=== PATIENT | female | born 1965 | race Caucasian/White ===

== ENCOUNTER → 2016-12-26 | Outpatient (CLI) | payer OTHER ==
[2016-12-26 13:08] LABS: BASO % 0.7 % (0.0-1.0); EOS # 0.1 K/mm3 (0.0-0.50); EOS % 1.7 % (0.0-3.0); LARGE UNSTAINED CELL # 0.1 K/mm3 (0.0-0.4); LARGE UNSTAINED CELL % 1.8 % (0.0-4.0); LYMPH # 1.6 K/mm3 (1.5-4.5); LYMPH % 24.7 % (24.0-44.0); MEAN CORPUSCULAR HEMOGLOBIN 26.2 pg (27.0-33.0); MEAN CORPUSCULAR HGB CONC 32.1 g/dl (32.0-36.5); MEAN CORPUSCULAR VOLUME 81.6 fl (80.0-96.0); MONO # 0.4 K/mm3 (0.0-0.8); MONO % 5.4 % (0.0-5.0); NEUTROPHILS # 4.4 K/mm3 (1.8-7.7); NEUTROPHILS % 65.7 % (36.0-66.0); PLATELET COUNT, AUTOMATED 377 k/mm3 (150-450); RED CELL DISTRIBUTION WIDTH 14.9 % (11.5-14.5); WHITE BLOOD COUNT 6.6 K/mm3 (4.0-10.0)
[2016-12-26 14:07] LABS: ALBUMIN 3.3 GM/DL (3.2-5.2); ALBUMIN/GLOBULIN RATIO 0.89 (1.00-1.93); ALKALINE PHOSPHATASE 68 U/L (45-117); ALT/SGPT 24 U/L (12-78); ANION GAP 6 MEQ/L (8-16); AST/SGOT 18 U/L (15-37); BILIRUBIN,TOTAL 0.3 MG/DL (0.2-1.0); BLOOD UREA NITROGEN 10 MG/DL (7-18); CALCIUM LEVEL 8.1 MG/DL (8.5-10.1); CARBON DIOXIDE LEVEL 29 MEQ/L (21-32); CHLORIDE LEVEL 106 MEQ/L (98-107); CHOLESTEROL LEVEL 177 MG/DL (<200); CREATININE FOR GFR 0.67 MG/DL (0.55-1.02); GLOMERULAR FILTRATION RATE > 60.0 (>51); GLUCOSE, FASTING 85 MG/DL (70-105); POTASSIUM SERUM 4.4 MEQ/L (3.5-5.1); SODIUM LEVEL 141 MEQ/L (136-145); TRIGLYCERIDES LEVEL 80 MG/DL (<150)
== END ==
LOC: M WUC 10:20
PROVIDERS: ATTEND Family Medicine
DX: Z00.00 Encounter for general adult medical examination without abnormal findings (principal)

== ENCOUNTER → 2017-09-18 | Outpatient (REF) | payer OTHER | LOC: M SFHCWAGY 13:02 | DX: Z12.4 Encounter for screening for malignant neoplasm of cervix (principal) ==

== ENCOUNTER → 2017-09-18 | Outpatient (CLI) | payer OTHER | LOC: M WHC 13:07 | DX: Z12.31 Encounter for screening mammogram for malignant neoplasm of breast (principal) ==

== ENCOUNTER → 2017-11-26 | Outpatient (CLI) | payer BC | LOC: M WHC 13:51 | DX: R10.32 Left lower quadrant pain (principal); N92.6 Irregular menstruation, unspecified ==

== ENCOUNTER → 2018-02-04 | Outpatient (CLI) | payer OTHER, BC | LOC: M EKG 15:27 | DX: Z01.818 Encounter for other preprocedural examination (principal) | CPT/HCPCS: 93005 ==

== ENCOUNTER → 2018-02-08 | Outpatient (CLI) | payer OTHER ==
[2018-02-08 09:55] LABS: BASO # 0.1 10^3/uL (0.0-0.2); EOS # 0.1 10^3/uL (0.0-0.50); EOS % 1.9 % (0.0-3.0); HEMATOCRIT 32.4 % (36.0-47.0); HEMOGLOBIN 9.9 g/dl (12.0-15.5); IMMATURE GRANULOCYTE % 0.2 % (0-3.0); LYMPH # 1.7 10^3/uL (1.5-4.5); LYMPH % 27.3 % (24.0-44.0); MEAN CORPUSCULAR HEMOGLOBIN 23.8 pg (27.0-33.0); MEAN CORPUSCULAR HGB CONC 30.6 g/dl (32.0-36.5); MEAN CORPUSCULAR VOLUME 77.9 fl (80.0-96.0); MONO # 0.6 10^3/uL (0.0-0.8); MONO % 8.9 % (0.0-5.0); NEUTROPHILS # 3.8 10^3/uL (1.8-7.7); NEUTROPHILS % 60.7 % (36.0-66.0); PLATELET COUNT, AUTOMATED 376 10^3/uL (150-450); RED BLOOD COUNT 4.16 10^6/uL (4.00-5.40); RED CELL DISTRIBUTION WIDTH 15.6 % (11.5-14.5); WHITE BLOOD COUNT 6.2 10^3/uL (4.0-10.0)
[2018-02-08 10:59] LABS: ALKALINE PHOSPHATASE 73 U/L (45-117); ALT/SGPT 23 U/L (12-78); ANION GAP 6 MEQ/L (8-16); AST/SGOT 15 U/L (7-37); BILIRUBIN,TOTAL 0.2 MG/DL (0.2-1.0); BLOOD UREA NITROGEN 13 MG/DL (7-18); CALCIUM LEVEL 8.1 MG/DL (8.5-10.1); CARBON DIOXIDE LEVEL 26 MEQ/L (21-32); CHLORIDE LEVEL 110 MEQ/L (98-107); CREATININE FOR GFR 0.69 MG/DL (0.55-1.30); GLOMERULAR FILTRATION RATE > 60.0 (>51); GLUCOSE, FASTING 89 MG/DL (70-100); POTASSIUM SERUM 4.6 MEQ/L (3.5-5.1); SODIUM LEVEL 142 MEQ/L (136-145); TRIGLYCERIDES LEVEL 113 MG/DL (<150)
[2018-02-08 11:00] LABS: ALBUMIN 3.3 GM/DL (3.2-5.2); ALBUMIN/GLOBULIN RATIO 0.87 (1.00-1.93); CHOLESTEROL LEVEL 188 MG/DL (<200); CHOLESTEROL RISK RATIO 3.357 (<5); HDL CHOLESTEROL 56 MG/DL (>40); LDL CHOLESTEROL 109.4 MG/DL (<100); NON-HDL-C 132 MG/DL; TOTAL PROTEIN 7.1 GM/DL (6.4-8.2)
== END ==
LOC: M WUC 08:50
DX: Z00.00 Encounter for general adult medical examination without abnormal findings (principal)
CPT/HCPCS: 84443

== ENCOUNTER 2018-02-11 06:54 | Day surgery (SDC) | payer BC ==
[2018-02-11 07:19] LABS: HEMATOCRIT 33.9 % (36.0-47.0); HEMOGLOBIN 10.6 g/dl (12.0-15.5); MEAN CORPUSCULAR HEMOGLOBIN 23.8 pg (27.0-33.0); MEAN CORPUSCULAR HGB CONC 31.3 g/dl (32.0-36.5); MEAN CORPUSCULAR VOLUME 76.2 fl (80.0-96.0); PLATELET COUNT, AUTOMATED 400 10^3/uL (150-450); RED BLOOD COUNT 4.45 10^6/uL (4.00-5.40); RED CELL DISTRIBUTION WIDTH 15.5 % (11.5-14.5)
[2018-02-11] MEDS: LR 1,000 ML IV ×4 (07:31→20:32)
[2018-02-11] MEDS ORDERED: ONDANSETRON 4MG/2ML VIAL (J2405) As Ordered ×3 (07:40→09:21)
[2018-02-11 07:48] LABS: CONTROL LINE UCG INT CTR LINE PRESENT; URINE PREG TEST NEGATIVE (NEGATIVE)
[2018-02-11] MEDS ORDERED: ROCURONIUM BROMIDE 50 MG/5 ML VIAL As Ordered ×3 (07:51→09:22)
[2018-02-11] MEDS ORDERED: PROPOFOL 200 MG/20 ML VIAL As Ordered ×2 (07:51→09:22)
[2018-02-11] MEDS ORDERED: LIDOCAINE 2% INJ 100 MG/5 ML SDV (FOR ANES.) As Ordered ×2 (07:52→09:22)
[2018-02-11] MEDS ORDERED: dexameTHASONE 4 MG/ML 1ML VIAL (J1100) As Ordered ×4 (07:52→09:21)
[2018-02-11] MEDS ORDERED: GLYCOPYRROLATE INJ 0.2 MG/ML 2 ML VIAL As Ordered ×2 (07:53)
[2018-02-11] MEDS ORDERED: NEOSTIGMINE 10 MG/10 ML VIAL (J2710) As Ordered (07:53)
[2018-02-11] MEDS ORDERED: METOCLOPRAMIDE INJ 10MG/2ML VIAL (J2765) As Ordered ×2 (07:53→09:21)
[2018-02-11] MEDS: METHYLENE BLUE 0.5% (5MG/ML) 10 ML AMP (PROVAYBLUE)(Q9968 PER 1MG) As Ordered (07:53)
[2018-02-11] MEDS ORDERED: HYDROmorphone HCL 2 MG/ML 1ML VIAL (J1170) As Ordered (08:23)
[2018-02-11] MEDS ORDERED: fentaNYL 250 MCG/5 ML INJECTION (J3010) As Ordered (08:23)
[2018-02-11] MEDS ORDERED: MIDAZOLAM INJ 2 MG/2 ML VIAL (J2250) As Ordered (08:23)
[2018-02-11] MEDS ORDERED: SUCCINYLCHOLINE 100 MG/5 ML SYRINGE (J0330) As Ordered (08:36)
[2018-02-11] MEDS ORDERED: KETOROLAC 60 MG/2 ML VIAL (J1885) As Ordered ×2 (09:21)
[2018-02-11] MEDS ORDERED: MORPHINE 1MG/ML IN 0.9% NACL 100ML IV BAG As Ordered (10:59)
[2018-02-11] MEDS ORDERED: fentaNYL 100 MCG/2 ML INJECTION (J3010) IV (11:30)
[2018-02-11] MEDS ORDERED: NALBUPHINE HCL 10 MG/ML AMP (J2300) IV (11:30)
[2018-02-11] MEDS ORDERED: HYDROMORPHONE HCL 0.5 MG/ 0.5 ML SYRINGE (J1170 PER 1) IV (11:30)
[2018-02-11] MEDS ORDERED: ONDANSETRON 4MG/2ML VIAL (J2405) IV (11:30)
[2018-02-11] MEDS ORDERED: NALOXONE INJ 0.4 MG/1 ML VIAL (J2310) IV (11:30)
[2018-02-11] MEDS ORDERED: EPIDURAL/PCA KEYS XX (11:30)
[2018-02-11] MEDS ORDERED: PERCOCET 5MG/325MG TAB PO (11:30)
[2018-02-11] MEDS ORDERED: IBUPROFEN 600 MG TAB PO (11:30)
[2018-02-11] MEDS ORDERED: diphenhydrAMINE INJ 50MG/ML VIAL (J1200) IV (11:30)
[2018-02-11] MEDS: MORPHINE 1MG/ML IN 0.9% NACL 100ML IV BAG IV (11:37)
[2018-02-11] MEDS: ONDANSETRON 4MG/2ML VIAL (J2405) IV (12:29)
[2018-02-11] MEDS: ESCITALOPRAM OXALATE 10 MG TAB (LEXAPRO) PO (18:00)
[2018-02-11] MEDS: PANTOPRAZOLE 40MG TAB (PROTONIX) PO (20:31)
[2018-02-12] MEDS: LR 1,000 ML IV (04:20)
[2018-02-12] MEDS ORDERED: NORCO, ANEXSIA 5/325MG TABLET (HYDROcodone/ACETAMINOPHEN) PO (06:00)
[2018-02-12] MEDS: IBUPROFEN 600 MG TAB PO (06:52)
[2018-02-12 07:06] LABS: HEMATOCRIT 27.9 % (36.0-47.0); HEMOGLOBIN 8.6 g/dl (12.0-15.5); MEAN CORPUSCULAR HEMOGLOBIN 23.8 pg (27.0-33.0); MEAN CORPUSCULAR HGB CONC 30.8 g/dl (32.0-36.5); MEAN CORPUSCULAR VOLUME 77.3 fl (80.0-96.0); PLATELET COUNT, AUTOMATED 390 10^3/uL (150-450); RED BLOOD COUNT 3.61 10^6/uL (4.00-5.40); RED CELL DISTRIBUTION WIDTH 15.9 % (11.5-14.5); WHITE BLOOD COUNT 11.6 10^3/uL (4.0-10.0)
[2018-02-12] MEDS: ESCITALOPRAM OXALATE 10 MG TAB (LEXAPRO) PO (08:49)
[2018-02-12] MEDS: PANTOPRAZOLE 40MG TAB (PROTONIX) PO (08:51)
== END 2018-02-12 10:15 | disposition home or self-care (01) ==
LOC: M SDC 06:54 → M PED 12:25
DX: R10.2 Pelvic and perineal pain (principal); D25.0 Submucous leiomyoma of uterus; F41.9 Anxiety disorder, unspecified; Z79.899 Other long term (current) drug therapy
CPT/HCPCS: 58573

== ENCOUNTER → 2018-03-16 | Outpatient (CLI) | payer BC ==
[2018-03-16 12:42] LABS: FREE T4 0.94 NG/DL (0.76-1.46)
== END ==
LOC: M WUC 09:19
DX: R94.6 Abnormal results of thyroid function studies (principal)

== ENCOUNTER → 2018-04-28 | Outpatient (CLI) | payer BC ==
[2018-04-28 17:25] LABS: FREE T4 1.06 NG/DL (0.76-1.46)
== END ==
LOC: M WUC 12:37
DX: E03.9 Hypothyroidism, unspecified (principal)
CPT/HCPCS: 84443

== ENCOUNTER → 2018-09-24 | Outpatient (CLI) | payer BC ==
[~2018-09-24] MED LIST: ESCI10TA2; IBUP-1022 PO; MAGN1TAB25 PO; MULT1TAB10 PO; NORC1TAB4 PO; TRAZ-160 PO; VITA-110 PO; ZYRTTAB8 PO
--- NOTE | 2018-09-24 12:27 | REPMRS ---
Patient History The patient states she had a clinical breast exam in 10/09 Patient is postmenopausal. No known family history of cancer. Took estrogen for 6 months. Digital Woman Screen Mammo: September 24, 2018 - Exam #: [id number] Bilateral CC and MLO view(s) were taken. Technologist: Shauna Clement, Technologist Prior study comparison: September 18, 2017, digital woman screen mammo performed at [facility]. September 11, 2016, digital woman screen mammo performed at [facility]. May 17, 2015, digital woman screen mammo performed at [facility]. FINDINGS: The breast tissue is heterogeneously dense. This may lower the sensitivity of mammography. There is a moderate amount of heterogeneously dense fibroglandular tissue which is fairly symmetric. There is no interval development of dominant mass, architectural distortion, or clustered microcalcification typical of malignancy. There has been no change in the appearance of the mammogram from the prior studies. 3-D tomosynthesis shows no additional findings. Assessment: BI-RADS/ACR category 1 mammogram. Negative. Recommendation Routine screening mammogram of both breasts in 1 year (for women over age 40). This patient's Lifetime Breast Cancer RIsk is estimated at 12.7 %. This mammogram was interpreted with the aid of an FDA-approved computer-aided dectection system. Electronically Signed By: Roc Mcqueen MD 09/24/18 2730
== END ==
LOC: M WHC 09:34
PROVIDERS: ATTEND Nurse Practitioner Women's Health
DX: Z12.31 Encounter for screening mammogram for malignant neoplasm of breast (principal); Z78.0 Asymptomatic menopausal state

== ENCOUNTER → 2018-11-05 | Outpatient (CLI) | payer BC ==
[2018-11-05 20:03] LABS: FREE T4 1.04 NG/DL (0.76-1.46); THYROID STIMULATING HORMONE 1.94 uIU/ML (0.358-3.740)
== END ==
LOC: M WUC 15:49
PROVIDERS: ATTEND Family Medicine
DX: E03.9 Hypothyroidism, unspecified (principal)

== ENCOUNTER → 2019-09-26 | Outpatient (CLI) | payer BC ==
[~2019-09-26] MED LIST changes: -MAGN1TAB25 PO; +MAGN1TAB26 PO; -NORC1TAB4 PO; +NORC1TAB7 PO; -TRAZ-160 PO; +TRAZ-252 PO
--- NOTE | 2019-09-26 11:46 | REPMRS ---
Patient History The patient states she had a clinical breast exam in 09/2019. Patient is postmenopausal. No known family history of cancer. Taking estrogen for 1 year 6 months. Taking progesterone for 1 year. Digital Woman Screen Mammo: September 26, 2019 - Exam #: [id number] Bilateral CC and MLO view(s) were taken. Technologist: Ashlee Allred, Technologist Prior study comparison: September 24, 2018, bilateral digital woman screen mammo performed at [facility]. September 18, 2017, digital woman screen mammo performed at [facility]. September 11, 2016, digital woman screen mammo performed at [facility]. FINDINGS: The breast tissue is heterogeneously dense. This may lower the sensitivity of mammography. There is a moderate amount of heterogeneously dense fibroglandular tissue which is fairly symmetric. There is no interval development of dominant mass, architectural distortion, or grouped microcalcification typical of malignancy. There has been no change in the appearance of the mammogram from the prior studies. 3-D tomosynthesis shows no additional findings. Assessment: BI-RADS/ACR category 1 mammogram. Negative Mammogram. Recommendation Routine screening mammogram of both breasts in 1 year (for women over age 40). This patient's Lifetime Breast Cancer RIsk is estimated at 12.5 %. This mammogram was interpreted with the aid of an FDA-approved computer-aided dectection system. Electronically Signed By: Roc Mcqueen MD 09/26/19 1047
== END ==
LOC: M WHC 09:56
PROVIDERS: ATTEND Nurse Practitioner Women's Health
DX: Z12.31 Encounter for screening mammogram for malignant neoplasm of breast (principal); Z78.0 Asymptomatic menopausal state

== ENCOUNTER → 2020-02-24 | Outpatient (CLI) | payer BC ==
[2020-02-24 12:30] LABS: BASO # 0.1 10^3/uL (0.0-0.2); BASO % 0.9 % (0.0-1.0); EOS # 0.1 10^3/uL (0.0-0.5); EOS % 1.6 % (0.0-3.0); HEMATOCRIT 40.6 % (36.0-47.0); HEMOGLOBIN 13.2 g/dl (12.0-15.5); LYMPH # 1.4 10^3/uL (1.5-5.0); LYMPH % 25.5 % (24.0-44.0); MEAN CORPUSCULAR HEMOGLOBIN 28.7 pg (27.0-33.0); MEAN CORPUSCULAR HGB CONC 32.5 g/dl (32.0-36.5); MEAN CORPUSCULAR VOLUME 88.3 fl (80.0-96.0); MONO # 0.4 10^3/uL (0.0-0.8); MONO % 7.8 % (0.0-5.0); NEUTROPHILS # 3.6 10^3/uL (1.5-8.5); PLATELET COUNT, AUTOMATED 342 10^3/uL (150-450); WHITE BLOOD COUNT 5.6 10^3/uL (4.0-10.0)
[2020-02-24 13:09] LABS: ALBUMIN 3.5 GM/DL (3.2-5.2); ALT/SGPT 45 U/L (12-78); BILIRUBIN,TOTAL 0.4 MG/DL (0.2-1.0); BLOOD UREA NITROGEN 10 MG/DL (7-18); CALCIUM LEVEL 8.7 MG/DL (8.5-10.1); CARBON DIOXIDE LEVEL 27 MEQ/L (21-32); CHLORIDE LEVEL 106 MEQ/L (98-107); CHOLESTEROL LEVEL 248 MG/DL (<200); CHOLESTEROL RISK RATIO 4.509 (<5); CREATININE FOR GFR 0.64 MG/DL (0.55-1.30); FREE T4 1.13 NG/DL (0.76-1.46); GLOMERULAR FILTRATION RATE > 60.0 (>51); GLUCOSE, FASTING 90 MG/DL (70-100); HDL CHOLESTEROL 55 MG/DL (>40); LDL CHOLESTEROL 164 MG/DL (<100); NON-HDL-C 193 MG/DL; POTASSIUM SERUM 4.5 MEQ/L (3.5-5.1); SODIUM LEVEL 140 MEQ/L (136-145); TOTAL PROTEIN 7.2 GM/DL (6.4-8.2); TRIGLYCERIDES LEVEL 143 MG/DL (<150)
== END ==
LOC: M WUC 09:13
PROVIDERS: ATTEND Nurse Practitioner Family
DX: Z00.00 Encounter for general adult medical examination without abnormal findings (principal)

== ENCOUNTER → 2020-03-12 | Outpatient (CLI) | payer BC ==
[~2020-03-12] MED LIST changes: +CLIM0.05 TD; +LEVO50TA5 PO; +VITAD1000T PO
== END ==
LOC: M LABSMTC 09:29
PROVIDERS: ATTEND Anesthesiology
DX: Z03.818 Encounter for observation for suspected exposure to other biological agents ruled out (principal); Z11.59 Encounter for screening for other viral diseases
CPT/HCPCS: C9803; U0002

== ENCOUNTER 2020-03-14 06:37 | Day surgery (SDC) | payer BC ==
[~2020-03-14] VITALS: Ht 165.1 cm; Wt 88.5 kg
[~2020-03-14 06:37] MED LIST changes: +NS 1,000 ML IV SCH
[2020-03-14] MEDS ORDERED: LIDOCAINE 2% MDV 20ML VIAL As Ordered ONE (07:03)
[2020-03-14] MEDS ORDERED: propofoL 200 MG/20 ML VIAL As Ordered ONE (07:03)
--- NOTE | 2020-03-14 07:53 | ROOR ---
Patient Name: Anahi Christensen Procedure Date: 03/14/2020 7:30 AM Date of : 1965 Age: 54 Room: [facility] Gender: Female Note Status: Finalized Procedure: Colonoscopy Indications: Screening for colorectal malignant neoplasm Providers: DO Marina Rodgers MD: Mandie Rios MD Requesting Provider: Medicines: Propofol per Anesthesia Complications: No immediate complications. Procedure: Pre-Anesthesia Assessment: - Prior to the procedure, a History and Physical was performed, and patient medications and allergies were reviewed. The patient is competent. The risks and benefits of the procedure and the sedation options and risks were discussed with the patient. All questions were answered and informed consent was obtained. Patient identification and proposed procedure were verified by the physician, the nurse, the information security consultant and the telecommunication tower technician in the endoscopy suite. Mental Status Examination: alert and oriented. Airway Examination: normal oropharyngeal airway and neck mobility. Respiratory Examination: clear to auscultation. CV Examination: normal. Prophylactic Antibiotics: The patient does not require prophylactic antibiotics. Prior Anticoagulants: The patient has taken no previous anticoagulant or antiplatelet agents. ASA Grade Assessment: I - A normal, healthy patient. After reviewing the risks and benefits, the patient was deemed in satisfactory condition to undergo the procedure. The anesthesia plan was to use monitored anesthesia care (MAC). Immediately prior to administration of medications, the patient was re-assessed for adequacy to receive sedatives. The heart rate, respiratory rate, oxygen saturations, blood pressure, adequacy of pulmonary ventilation, and response to care were monitored throughout the procedure. The physical status of the patient was re-assessed after the procedure. The Colonoscope was introduced through the anus and advanced to the cecum, identified by appendiceal orifice and ileocecal valve. The colonoscopy was performed without difficulty. The patient tolerated the procedure well. Findings: Internal hemorrhoids were found during retroflexion. The hemorrhoids were small and Grade I (internal hemorrhoids that do not prolapse). Multiple small and large-mouthed diverticula were found in the sigmoid colon, descending colon, splenic flexure and transverse colon. The exam was otherwise without abnormality on direct and retroflexion views. Impression: - Internal hemorrhoids. - Diverticulosis in the sigmoid colon, in the descending colon, at the splenic flexure and in the transverse colon. - The examination was otherwise normal on direct and retroflexion views. - No specimens collected. Recommendation: - Patient has a contact number available for emergencies. The signs and symptoms of potential delayed complications were discussed with the patient. Return to normal activities tomorrow. Written discharge instructions were provided to the patient. - Return to my office PRN. - Repeat colonoscopy in 5-10 years for screening purposes. Jamel Hay DO 03/14/2020 7:52:45 AM Electronically signed by Jamel Hay DO Number of Addenda: 0 Note Initiated On: 03/14/2020 7:30 AM Estimated Blood Loss: Estimated blood loss: none.
[2020-03-14 08:15] VITALS: BP 138/87
== END 2020-03-14 08:24 | disposition home or self-care (01) ==
LOC: M OPP 06:37
PROVIDERS: ATTEND Surgery
DX: Z12.11 Encounter for screening for malignant neoplasm of colon (principal); K64.8 Other hemorrhoids; K57.30 Diverticulosis of large intestine without perforation or abscess without bleeding; E03.9 Hypothyroidism, unspecified; Z79.899 Other long term (current) drug therapy

== ENCOUNTER → 2020-12-13 | Outpatient (CLI) | payer BC ==
[~2020-12-13] MED LIST changes: +D31000TA2 PO; +ESCI10TA16; -ESCI10TA2; -NS 1,000 ML IV SCH; -VITAD1000T PO
--- NOTE | 2020-12-13 17:09 | REPMRS ---
Patient History The patient states she had a clinical breast exam in 11/2020 Patient is postmenopausal. No known family history of cancer. Taking estrogen for 2 years 6 months. Taking progesterone for 2 years. Digital Woman Screen Mammo: December 13, 2020 - Exam #: [id number] Bilateral CC and MLO view(s) were taken. Technologist: Shauna Clement, Technologist Prior study comparison: September 26, 2019, bilateral digital woman screen mammo performed at [facility]. September 24, 2018, bilateral digital woman screen mammo performed at [facility]. September 18, 2017, digital woman screen mammo performed at [facility]. FINDINGS: There are scattered fibroglandular densities. The Volpara volumetric breast density category is: B. There is a moderate amount of residual fibroglandular tissue which is fairly symmetric. There is no interval development of dominant mass, architectural distortion, or grouped microcalcification typical of malignancy. There has been no change in the appearance of the mammogram from the prior studies. 3-D tomosynthesis shows no additional findings. Assessment: BI-RADS/ACR category 1 mammogram. Negative Mammogram. Recommendation Routine screening mammogram of both breasts in 1 year (for women over age 40). This patient's [facility] Lifetime Breast Cancer RIsk is estimated at 12.2 %. This mammogram was interpreted with the aid of an FDA-approved computer-aided dectection system. Electronically Signed By: Roc Mcqueen MD 12/13/20 2839
== END ==
LOC: M WHC 15:45
PROVIDERS: ATTEND Nurse Practitioner Women's Health
DX: Z12.31 Encounter for screening mammogram for malignant neoplasm of breast (principal)

== ENCOUNTER → 2021-04-15 | Outpatient (CLI) | payer BC ==
[2021-04-15 12:03] LABS: BASO # 0.1 10^3/uL (0.0-0.2); BASO % 1.1 % (0.0-1.0); EOS # 0.1 10^3/uL (0.0-0.5); EOS % 1.9 % (0.0-3.0); HEMATOCRIT 39.6 % (36.0-47.0); LYMPH # 1.9 10^3/uL (1.5-5.0); LYMPH % 26.5 % (24.0-44.0); MEAN CORPUSCULAR HEMOGLOBIN 29.1 pg (27.0-33.0); MEAN CORPUSCULAR HGB CONC 32.8 g/dl (32.0-36.5); MEAN CORPUSCULAR VOLUME 88.6 fl (80.0-96.0); MONO # 0.6 10^3/uL (0.0-0.8); MONO % 8.2 % (2.0-8.0); NEUTROPHILS # 4.3 10^3/uL (1.5-8.5); PLATELET COUNT, AUTOMATED 273 10^3/uL (150-450); RED BLOOD COUNT 4.47 10^6/uL (4.00-5.40)
[2021-04-15 13:04] LABS: ALBUMIN 3.4 GM/DL (3.2-5.2); ALT/SGPT 30 U/L (12-78); BILIRUBIN,TOTAL 0.3 MG/DL (0.2-1.0); BLOOD UREA NITROGEN 12 MG/DL (7-18); CALCIUM LEVEL 8.9 MG/DL (8.5-10.1); CARBON DIOXIDE LEVEL 28 MEQ/L (21-32); CHLORIDE LEVEL 107 MEQ/L (98-107); CHOLESTEROL LEVEL 243 MG/DL (<200); CHOLESTEROL RISK RATIO 4.339 (<5); FREE T4 0.94 NG/DL (0.76-1.46); GLOMERULAR FILTRATION RATE > 60.0 (>51); GLUCOSE, FASTING 85 MG/DL (70-100); HDL CHOLESTEROL 56 MG/DL (>40); LDL CHOLESTEROL 152 MG/DL (<100); NON-HDL-C 187 MG/DL; POTASSIUM SERUM 4.8 MEQ/L (3.5-5.1); SODIUM LEVEL 139 MEQ/L (136-145); TRIGLYCERIDES LEVEL 175 MG/DL (<150)
== END ==
LOC: M WUC 08:42
PROVIDERS: ATTEND Family Medicine
DX: Z00.00 Encounter for general adult medical examination without abnormal findings (principal); E03.9 Hypothyroidism, unspecified; E03.0 Congenital hypothyroidism with diffuse goiter

== ENCOUNTER → 2022-02-20 | Outpatient (CLI) | payer BC ==
[~2022-02-20] MED LIST changes: -D31000TA2 PO; +VITA100093 PO
== END ==
LOC: M WHC 11:01
PROVIDERS: ATTEND Advanced Practice Midwife
DX: Z12.31 Encounter for screening mammogram for malignant neoplasm of breast (principal); Z78.0 Asymptomatic menopausal state

== ENCOUNTER → 2022-04-17 | Outpatient (CLI) | payer BC ==
[2022-04-17 09:55] LABS: BASO % 0.6 % (0.0-1.0); EOS # 0.1 10^3/uL (0.0-0.5); EOS % 1.9 % (0.0-3.0); HEMATOCRIT 39.1 % (36.0-47.0); HEMOGLOBIN 12.8 g/dl (12.0-15.5); LYMPH # 1.8 10^3/uL (1.5-5.0); LYMPH % 27.5 % (24.0-44.0); MEAN CORPUSCULAR HEMOGLOBIN 28.6 pg (27.0-33.0); MEAN CORPUSCULAR HGB CONC 32.7 g/dl (32.0-36.5); MEAN CORPUSCULAR VOLUME 87.3 fl (80.0-96.0); MONO # 0.5 10^3/uL (0.0-0.8); MONO % 7.4 % (2.0-8.0); NEUTROPHILS % 62.3 % (36.0-66.0); PLATELET COUNT, AUTOMATED 344 10^3/uL (150-450); RED BLOOD COUNT 4.48 10^6/uL (4.00-5.40); WHITE BLOOD COUNT 6.4 10^3/uL (4.0-10.0)
[2022-04-17 10:35] LABS: ALBUMIN 3.3 GM/DL (3.2-5.2); ALT/SGPT 24 U/L (12-78); BILIRUBIN,TOTAL 0.3 MG/DL (0.2-1.0); BLOOD UREA NITROGEN 10 MG/DL (7-18); CALCIUM LEVEL 8.8 MG/DL (8.5-10.1); CARBON DIOXIDE LEVEL 27 MEQ/L (21-32); CHLORIDE LEVEL 110 MEQ/L (98-107); CHOLESTEROL LEVEL 229 MG/DL (<200); FREE T4 1.01 NG/DL (0.76-1.46); GLOMERULAR FILTRATION RATE > 60.0 (>51); GLUCOSE, FASTING 90 MG/DL (70-100); HDL CHOLESTEROL 51 MG/DL (>40); LDL CHOLESTEROL 151 MG/DL (<100); NON-HDL-C 178 MG/DL; POTASSIUM SERUM 4.1 MEQ/L (3.5-5.1); SODIUM LEVEL 142 MEQ/L (136-145); TOTAL PROTEIN 6.7 GM/DL (6.4-8.2); TRIGLYCERIDES LEVEL 136 MG/DL (<150)
== END ==
LOC: M WUC 08:33
PROVIDERS: ATTEND Family Medicine
DX: Z00.00 Encounter for general adult medical examination without abnormal findings (principal); E03.9 Hypothyroidism, unspecified; E55.9 Vitamin D deficiency, unspecified

== ENCOUNTER 2023-02-01 06:19 | Emergency (ER) | payer BC ==
[~2023-02-01] VITALS: Ht 162.6 cm; Wt 81.6 kg
[~2023-02-01 06:19] MED LIST changes: +ESOM0.1C PO; +ESTR0.059 TD; +ESTR1PAT; +FLUT50SP33; +LEXA1TAB PO; +OMEP-173 PO; +VITMTA PO
[2023-02-01] MEDS ORDERED: NS 1,000 ML IV ONE (07:05)
[2023-02-01] MEDS ORDERED: ONDANSETRON 4MG 2ML VIAL IV ONE (07:05)
[2023-02-01] MEDS ORDERED: KETOROLAC 30 MG/ML 1ML VIAL IV ONE (07:05)
[2023-02-01 07:26] LABS: BASO # 0.1 10^3/uL (0.0-0.2); BASO % 0.5 % (0.0-1.0); EOS # 0.2 10^3/uL (0.0-0.5); EOS % 1.7 % (0.0-3.0); HEMATOCRIT 38.9 % (36.0-47.0); HEMOGLOBIN 13.5 g/dl (12.0-15.5); LYMPH # 1.3 10^3/uL (1.5-5.0); LYMPH % 10.9 % (24.0-44.0); MEAN CORPUSCULAR HEMOGLOBIN 29.4 pg (27.0-33.0); MEAN CORPUSCULAR HGB CONC 34.7 g/dl (32.0-36.5); MEAN CORPUSCULAR VOLUME 84.7 fl (80.0-96.0); MONO # 0.9 10^3/uL (0.0-0.8); MONO % 7.7 % (2.0-8.0); NEUTROPHILS # 9.5 10^3/uL (1.5-8.5); PLATELET COUNT, AUTOMATED 418 10^3/uL (150-450); RED BLOOD COUNT 4.59 10^6/uL (4.00-5.40)
[2023-02-01 07:39] LABS: INR 0.95; PROTHROMBIN TIME 12.9 SECONDS (12.5-14.5)
[2023-02-01 07:41] LABS: CK-MB VALUE MASS < 1.0 NG/ML (<3.6)
[2023-02-01 07:42] LABS: LIPASE 89 U/L (12-53)
[2023-02-01 07:44] LABS: ALBUMIN 3.3 G/DL (3.2-5.2); ALKALINE PHOSPHATASE 87 U/L (46-116); ALT/SGPT 19 U/L (7.0-40); AST/SGOT 15 U/L (<34); BILIRUBIN,DIRECT 0.2 MG/DL (<0.4); BILIRUBIN,TOTAL 0.5 MG/DL (0.3-1.2); BLOOD UREA NITROGEN 8 MG/DL (9-23); CALCIUM LEVEL 8.7 MG/DL (8.5-10.1); CARBON DIOXIDE LEVEL 26 MMOL/L (20-31); CHLORIDE LEVEL 100 MMOL/L (98-107); CREATININE FOR GFR 0.56 MG/DL (0.55-1.30); GLOMERULAR FILTRATION RATE > 60.0 (>51); GLUCOSE, FASTING 102 MG/DL (60-100); SODIUM LEVEL 134 MMOL/L (136-145); TOTAL PROTEIN 6.9 G/DL (5.7-8.2)
[2023-02-01 07:46] LABS: THYROID STIMULATING HORMONE 1.779 uIU/ML (0.55-4.78)
[2023-02-01 07:51] LABS: CPK CREATINE PHOSPHOKINASE 36 U/L (34-145); MB/CK RELATIVE INDEX 2.77 (< OR =4)
[2023-02-01] MEDS ORDERED: ISOVUE-370 76% 100ML VIAL As Ordered ONE (08:55)
[2023-02-01 09:21] LABS: CK-MB VALUE MASS < 1.0 NG/ML (<3.6)
[2023-02-01 09:28] LABS: CPK CREATINE PHOSPHOKINASE 40 U/L (34-145)
[2023-02-01] MEDS ORDERED: PIPERACILLIN/TAZOBACTAM SOD 3.375 GM in D5W MINI-BAG PLUS 50 ML IV ONE (10:25)
[2023-02-01] MEDS ORDERED: KETO10TAB PO (11:24)
[2023-02-01] MEDS ORDERED: AMOX875T2 PO (11:24)
[2023-02-01] MEDS ORDERED: ONDA4TAB6 PO (11:25)
[2023-02-01 12:00] VITALS: BP 140/81
[2023-02-03] MEDS ORDERED: CITA20TA6 PO (09:46)
== END 2023-02-01 12:18 | disposition home or self-care (01) ==
LOC: M ED 06:19
DX: K83.8 Other specified diseases of biliary tract (principal); K85.90 Acute pancreatitis without necrosis or infection, unspecified; R00.0 Tachycardia, unspecified; K21.9 Gastro-esophageal reflux disease without esophagitis; F41.9 Anxiety disorder, unspecified; K57.92 Diverticulitis of intestine, part unspecified, without perforation or abscess without bleeding; Z79.2 Long term (current) use of antibiotics; Z79.83 Long term (current) use of bisphosphonates; Z79.899 Other long term (current) drug therapy
CPT/HCPCS: 71045; 74177; 76705; 80048; 80076; 81001; 82550; 82553; 83605; 83690; 84443; 84484; 85025; 85610; 87040; 93005; 93041; 94760; 96365; 96375; 99285; J1885; J2405; J2543; Q9967

== ENCOUNTER → 2023-02-09 | Outpatient (CLI) | payer BC ==
[~2023-02-09] MED LIST changes: +AMOX875T2 PO; +CETI1TAB61 PO; +CITA20TA6 PO; +ESCI5SOL3 PO; +FLUT15.820; +KETO10TAB PO; +LEXA1TAB2 PO; +LIDOCAINE 1% MDV 20ML VIAL As Ordered ONE; +MIDAZOLAM INJ 2MG/2ML VIAL As Ordered ONE; +NS 1,000 ML IV SCH; +ONDA4TAB6 PO; +ceFAZolin 2 GM/D5W 50 ML IV BAG As Ordered ONE; +ceFAZolin SOD 2 GM in IV 1 EA IV ONE; +diphenhydrAMINE 50MG/ML VIAL As Ordered ONE; +fentaNYL 100 MCG/2 ML INJECTION As Ordered ONE
[2023-02-09 16:15] VITALS: BP 113/75
== END ==
LOC: M IRPRO 11:24
PROVIDERS: ATTEND Internal Medicine Medical Oncology
DX: C25.9 Malignant neoplasm of pancreas, unspecified (principal)
CPT/HCPCS: 36561; 99152; 99153; C1769; C1788; C1894; J0690; J1200; J2250; J3010

== ENCOUNTER → 2023-07-01 | Outpatient (CLI) | payer BC ==
[~2023-07-01] MED LIST changes: +CEFD300C42; +CREO3600 PO; +FAMO20TA PO; -LIDOCAINE 1% MDV 20ML VIAL As Ordered ONE; +LORA1TAB23 PO; -MIDAZOLAM INJ 2MG/2ML VIAL As Ordered ONE; -NS 1,000 ML IV SCH; +ONDA-84 PO; +POTA10CA60 PO; +PROC10TA5 PO; -ceFAZolin 2 GM/D5W 50 ML IV BAG As Ordered ONE; -ceFAZolin SOD 2 GM in IV 1 EA IV ONE; -diphenhydrAMINE 50MG/ML VIAL As Ordered ONE; -fentaNYL 100 MCG/2 ML INJECTION As Ordered ONE
== END ==
LOC: M WHC 09:24
PROVIDERS: ATTEND Internal Medicine Medical Oncology
DX: R74.01 Elevation of levels of liver transaminase levels (principal)

== ENCOUNTER 2023-08-08 21:12 | Emergency (ER) | payer BC ==
[~2023-08-08] VITALS: Ht 167.6 cm; Wt 70.6 kg
[~2023-08-08 21:12] MED LIST changes: +AMOX875T2
[2023-08-08] MEDS ORDERED: SODIUM CHLORIDE 0.9% INJ 10 ML SYR IV PRN (22:05)
[2023-08-08] MEDS ORDERED: NS 1,000 ML IV ONE (22:05)
[2023-08-08 22:56] LABS: BASO % 0.6 % (0.0-1.0); EOS # 0.1 10^3/uL (0.0-0.5); EOS % 0.9 % (0.0-3.0); HEMATOCRIT 31.2 % (36.0-47.0); HEMOGLOBIN 10.6 g/dl (12.0-15.5); LYMPH # 1.4 10^3/uL (1.5-5.0); LYMPH % 19.9 % (24.0-44.0); MEAN CORPUSCULAR HEMOGLOBIN 30.5 pg (27.0-33.0); MEAN CORPUSCULAR VOLUME 89.9 fl (80.0-96.0); MONO # 0.6 10^3/uL (0.0-0.8); MONO % 8.9 % (2.0-8.0); NEUTROPHILS # 4.8 10^3/uL (1.5-8.5); NEUTROPHILS % 69.4 % (36.0-66.0); PLATELET COUNT, AUTOMATED 298 10^3/uL (150-450); RED BLOOD COUNT 3.47 10^6/uL (4.00-5.40)
[2023-08-08 23:21] LABS: LIPASE 21 U/L (12-53)
[2023-08-08 23:24] LABS: ALBUMIN 3.1 G/DL (3.2-5.2); ALKALINE PHOSPHATASE 175 U/L (46-116); ALT/SGPT 55 U/L (7.0-40); AST/SGOT 26 U/L (<34); BILIRUBIN,DIRECT 0.3 MG/DL (<0.4); BILIRUBIN,TOTAL 0.6 MG/DL (0.3-1.2); BLOOD UREA NITROGEN 10 MG/DL (9-23); CALCIUM LEVEL 8.7 MG/DL (8.5-10.1); CARBON DIOXIDE LEVEL 30 MMOL/L (20-31); CHLORIDE LEVEL 101 MMOL/L (98-107); GLOMERULAR FILTRATION RATE > 60.0 (>51); GLUCOSE, FASTING 111 MG/DL (60-100); POTASSIUM SERUM 3.5 MMOL/L (3.5-5.1); SODIUM LEVEL 139 MMOL/L (136-145); TOTAL PROTEIN 7.1 G/DL (5.7-8.2)
[2023-08-08] MEDS: GASTROGRAFIN SOLUTION 30ML PO SCH ×2 (23:27→23:45)
[2023-08-08] MEDS ORDERED: ISOVUE-370 76% 100ML VIAL As Ordered ONE (23:38)
[2023-08-09 01:33] VITALS: BP 134/90; TEMP 98.1; O2SAT 99
[2023-08-09] MEDS ORDERED: METOCLOPRAMIDE INJ 10MG/2ML VIAL IV ONE (02:00)
== END 2023-08-09 01:43 | disposition home or self-care (01) ==
LOC: M ED 21:12
DX: C25.9 Malignant neoplasm of pancreas, unspecified (principal); K31.84 Gastroparesis; R11.10 Vomiting, unspecified; F41.9 Anxiety disorder, unspecified; Z79.899 Other long term (current) drug therapy
CPT/HCPCS: 74177; 80048; 80076; 83605; 83690; 83735; 85025; 87635; 93041; 94760; 96374; 99284; J2765; Q9963; Q9967

== ENCOUNTER → 2023-10-19 | Outpatient (CLI) | payer BC ==
[~2023-10-19] MED LIST changes: +CEFD1CAP9; -CEFD300C42; +GASTROGRAFIN SOLUTION 30ML As Ordered ONE; +ISOVUE-370 76% 100ML VIAL As Ordered ONE
== END ==
LOC: M RAD 07:53
PROVIDERS: ATTEND Internal Medicine Medical Oncology
DX: C25.9 Malignant neoplasm of pancreas, unspecified (principal); Z90.49 Acquired absence of other specified parts of digestive tract
CPT/HCPCS: 71260; 74177; Q9963; Q9967

== ENCOUNTER → 2023-12-01 | Outpatient (CLI) | payer BC ==
[~2023-12-01] MED LIST changes: -GASTROGRAFIN SOLUTION 30ML As Ordered ONE; -ISOVUE-370 76% 100ML VIAL As Ordered ONE; +THERTAB21 PO; +THERTAB52 PO
== END ==
LOC: M ONCR 08:51
PROVIDERS: ATTEND General Practice
DX: C25.0 Malignant neoplasm of head of pancreas (principal); Z71.2 Person consulting for explanation of examination or test findings; Z79.51 Long term (current) use of inhaled steroids; Z79.890 Hormone replacement therapy; Z79.899 Other long term (current) drug therapy; Z92.21 Personal history of antineoplastic chemotherapy; Z90.710 Acquired absence of both cervix and uterus; Z90.722 Acquired absence of ovaries, bilateral; Z90.79 Acquired absence of other genital organ(s)

== ENCOUNTER 2023-12-17 14:03 | Outpatient (RCR) | payer BC ==
[~2023-12-17 14:03] MED LIST changes: +CAPE1TAB2 PO
[2023-12-18] MEDS ORDERED: MAGN400T2 PO (09:36)
[2023-12-18] MEDS ORDERED: POTA8CAP10 PO (09:36)
== END 2023-12-20 ==
LOC: M ONCR 14:03
PROVIDERS: ATTEND General Practice
DX: Z51.0 Encounter for antineoplastic radiation therapy (principal); C25.0 Malignant neoplasm of head of pancreas

== ENCOUNTER → 2024-01-19 | Outpatient (RCR) | payer BC ==
[~2024-01-19] MED LIST changes: +MAGN400T2 PO; -POTA10CA60 PO; +POTA10CA70 PO; +POTA8CAP10 PO
== END ==
LOC: M ONCR 12-21 08:04
PROVIDERS: ATTEND General Practice
DX: Z51.0 Encounter for antineoplastic radiation therapy (principal); C25.0 Malignant neoplasm of head of pancreas

== ENCOUNTER 2024-02-08 15:19 | Outpatient (RCR) | payer BC | END 2024-02-19 | LOC: M ONCR 15:19 | PROVIDERS: ATTEND General Practice | DX: Z51.0 Encounter for antineoplastic radiation therapy (principal); C25.9 Malignant neoplasm of pancreas, unspecified ==

== ENCOUNTER 2024-04-08 10:00 | Emergency (ER) | payer BC ==
[~2024-04-08 10:00] MED LIST changes: -ESOM0.1C PO; +ESOM20CA2 PO; +ONDA-282 PO; -ONDA4TAB6 PO
== END 2024-04-08 15:27 | disposition left against medical advice (07) ==
LOC: M ED 10:00
DX: Z53.21 Procedure and treatment not carried out due to patient leaving prior to being seen by health care provider (principal)

== ENCOUNTER 2024-04-11 11:50 | Emergency (ER) | payer BC ==
[~2024-04-11] VITALS: Ht 162.6 cm; Wt 65.7 kg
[2024-04-11 16:34] LABS: BASO % 0.3 % (0.0-1.0); EOS # 0.1 10^3/uL (0.0-0.5); HEMATOCRIT 33.5 % (36.0-47.0); HEMOGLOBIN 11.3 g/dl (12.0-15.5); LYMPH # 0.2 10^3/uL (1.5-5.0); LYMPH % 6.3 % (24.0-44.0); MEAN CORPUSCULAR HEMOGLOBIN 31.9 pg (27.0-33.0); MEAN CORPUSCULAR HGB CONC 33.7 g/dl (32.0-36.5); MEAN CORPUSCULAR VOLUME 94.6 fl (80.0-96.0); MONO # 0.4 10^3/uL (0.0-0.8); MONO % 10.7 % (2.0-8.0); NEUTROPHILS # 2.8 10^3/uL (1.5-8.5); NEUTROPHILS % 80.4 % (36.0-66.0); PLATELET COUNT, AUTOMATED 164 10^3/uL (150-450); RED BLOOD COUNT 3.54 10^6/uL (4.00-5.40); WHITE BLOOD COUNT 3.5 10^3/uL (4.0-10.0)
[2024-04-11 17:01] LABS: LIPASE 16 U/L (12-53)
[2024-04-11 17:03] LABS: ALBUMIN 3.2 G/DL (3.2-5.2); ALKALINE PHOSPHATASE 209 U/L (46-116); ALT/SGPT 46 U/L (7.0-40); AST/SGOT 36 U/L (<34); BILIRUBIN,DIRECT 0.1 MG/DL (<0.4); BILIRUBIN,TOTAL 0.4 MG/DL (0.3-1.2); CK-MB VALUE MASS < 1.0 NG/ML (<3.6); TOTAL PROTEIN 6.8 G/DL (5.7-8.2)
[2024-04-11 17:05] LABS: CPK CREATINE PHOSPHOKINASE 26 U/L (34-145); MB/CK RELATIVE INDEX 3.84 (< OR =4)
[2024-04-11] MEDS ORDERED: ISOVUE-370 76% 100ML VIAL As Ordered ONE (17:12)
[2024-04-11 17:21] LABS: INR 1.16; PARTIAL THROMBOPLASTIN TIME 29.6 SECONDS (24.8-34.2); PROTHROMBIN TIME 14.5 SECONDS (12.5-14.5)
[2024-04-11 19:17] VITALS: BP 104/61; TEMP 98.6; O2SAT 100
== END 2024-04-11 19:27 | disposition home or self-care (01) ==
LOC: M ED 11:50
DX: R10.9 Unspecified abdominal pain (principal); R11.2 Nausea with vomiting, unspecified; K76.9 Liver disease, unspecified; K21.9 Gastro-esophageal reflux disease without esophagitis; E03.9 Hypothyroidism, unspecified; F17.210 Nicotine dependence, cigarettes, uncomplicated; F10.10 Alcohol abuse, uncomplicated; Z79.1 Long term (current) use of non-steroidal anti-inflammatories (NSAID); Z79.899 Other long term (current) drug therapy
CPT/HCPCS: 36415; 71260; 74177; 76705; 80047; 80076; 82550; 82553; 83690; 84484; 85025; 85610; 85730; 93005; 99284; Q9967

== ENCOUNTER 2024-04-15 05:53 | Emergency (ER) | payer BC ==
[~2024-04-15] VITALS: Ht 162.6 cm; Wt 65.4 kg
[2024-04-15 08:39] LABS: BASO % 0.4 % (0.0-1.0); EOS # 0.1 10^3/uL (0.0-0.5); EOS % 1.1 % (0.0-3.0); HEMATOCRIT 38.1 % (36.0-47.0); HEMOGLOBIN 12.9 g/dl (12.0-15.5); LYMPH # 0.3 10^3/uL (1.5-5.0); LYMPH % 4.2 % (24.0-44.0); MEAN CORPUSCULAR HEMOGLOBIN 31.6 pg (27.0-33.0); MEAN CORPUSCULAR HGB CONC 33.9 g/dl (32.0-36.5); MEAN CORPUSCULAR VOLUME 93.4 fl (80.0-96.0); MONO # 0.5 10^3/uL (0.0-0.8); MONO % 6.6 % (2.0-8.0); NEUTROPHILS # 6.3 10^3/uL (1.5-8.5); NEUTROPHILS % 87.3 % (36.0-66.0); PLATELET COUNT, AUTOMATED 214 10^3/uL (150-450); RED BLOOD COUNT 4.08 10^6/uL (4.00-5.40); WHITE BLOOD COUNT 7.2 10^3/uL (4.0-10.0)
[2024-04-15 09:03] LABS: LIPASE 16 U/L (12-53)
[2024-04-15 09:05] LABS: ALBUMIN 3.4 G/DL (3.2-5.2); ALKALINE PHOSPHATASE 191 U/L (46-116); ALT/SGPT 28 U/L (7.0-40); AST/SGOT 24 U/L (<34); BILIRUBIN,DIRECT 0.2 MG/DL (<0.4); BILIRUBIN,TOTAL 0.7 MG/DL (0.3-1.2); BLOOD UREA NITROGEN 10 MG/DL (9-23); CARBON DIOXIDE LEVEL 31 MMOL/L (20-31); CHLORIDE LEVEL 101 MMOL/L (98-107); CREATININE FOR GFR 0.59 MG/DL (0.55-1.30); GLOMERULAR FILTRATION RATE > 60.0 (>51); GLUCOSE, FASTING 105 MG/DL (60-100); POTASSIUM SERUM 3.5 MMOL/L (3.5-5.1); SODIUM LEVEL 138 MMOL/L (136-145); TOTAL PROTEIN 7.4 G/DL (5.7-8.2)
[2024-04-15] MEDS: ONDANSETRON 4MG 2ML VIAL IV ONE (10:04)
[2024-04-15] MEDS: KETOROLAC 30 MG/ML 1ML VIAL IV ONE (10:04)
[2024-04-15] MEDS: NS 1,000 ML IV ONE (10:04)
[2024-04-15] MEDS: GASTROGRAFIN SOLUTION 30ML PO SCH (10:24)
[2024-04-15 10:47] LABS: CK-MB VALUE MASS < 1.0 NG/ML (<3.6)
[2024-04-15 10:48] LABS: CPK CREATINE PHOSPHOKINASE 20 U/L (34-145)
[2024-04-15] MEDS ORDERED: ISOVUE-370 76% 100ML VIAL As Ordered ONE (12:00)
[2024-04-15] MEDS ORDERED: PROC10TA5 PO (12:24)
[2024-04-15] MEDS ORDERED: CREO3600 PO (12:24)
[2024-04-15] MEDS ORDERED: OMEP40CA5 PO (12:24)
[2024-04-15] MEDS ORDERED: HOME MED LIST COMPLETE! XX SCH (12:25)
[2024-04-15] MEDS ORDERED: PROM1SUP2 PR (13:48)
[2024-04-15] MEDS ORDERED: HYDR-3713 PO (13:57)
[2024-04-15 14:01] VITALS: BP 118/71; TEMP 97.8; O2SAT 97
== END 2024-04-15 14:03 | disposition home or self-care (01) ==
LOC: M ED 05:53
DX: R18.8 Other ascites (principal); C79.9 Secondary malignant neoplasm of unspecified site; R11.2 Nausea with vomiting, unspecified; E03.9 Hypothyroidism, unspecified; F41.9 Anxiety disorder, unspecified; Z85.07 Personal history of malignant neoplasm of pancreas; Z87.891 Personal history of nicotine dependence; Z79.1 Long term (current) use of non-steroidal anti-inflammatories (NSAID); Z79.899 Other long term (current) drug therapy
CPT/HCPCS: 71046; 74177; 80048; 80076; 81001; 82550; 82553; 83690; 84484; 85025; 87040; 87086; 87486; 87581; 87633; 87798; 93005; 96361; 96374; 99284; J1885; J2405; Q9963; Q9967